=== PATIENT | male | born 1975 | race Caucasian/White ===

== ENCOUNTER 2020-11-25 10:01 | Emergency (ER) | payer OTHER, BC, SELFPAY ==
--- NOTE | 2020-11-25 10:10 | ED.WOUNDLAC ---
HPI - Wound/Laceration General Chief Complaint: Wound/Laceration Stated Complaint: Cut above the left Eye Time Seen by Provider: 11/25/20 10:10 Source: patient and RN notes reviewed History of Present Illness HPI narrative: Patient is a 45-year-old male who presents the urgent care with complaints of a laceration to the right upper eyelid. Patient states that he was laying in bed and his dog slapped him and cut the right upper eyelid with his nail. Patient states he is up-to-date on his tetanus. States that happened approximately 1 hour prior to arrival. Patient has placed a towel on the area to stop the bleeding but denies of any [id number] medication or cleaning the wound. Denies of any vision changes. Denies of any pain to the eye. No other acute complaints. No acute distress noted. Patient read the plan of care. Some parts of this dictation were generated by voice recognition software and may contain typographical and/or grammatical inaccuracies. Related Data Allergies Allergy/AdvReac Type Severity Reaction Status Date / Time No Known Allergies Allergy Verified 11/25/20 10:21 Review of Systems Review of Systems: CONSTITUTIONAL: Denies fever, chills, or sweats. EYES: Denies visual changes, redness, or discharge. ENT: Denies rhinorrhea, congestion, sore throat, or otalgia. CARDIOVASCULAR: Denies chest pain, palpitations, or edema. RESPIRATORY: Denies cough or dyspnea. GASTROINTESTINAL: Denies abdominal pain, nausea, vomiting, or diarrhea. GENITOURINARY: Denies dysuria or hematuria. SKIN: Reports of a laceration to the right upper eyelid MUSCULOSKELETAL: Denies back pain, joint pain, or myalgia. NEUROLOGIC: Denies headache, numbness, or weakness. All other systems reviewed are negative, except as documented in HPI. PMFSH Comments At the time of my signature, I reviewed and agree with the nursing past medical, surgical, social, and family history. There is no relevant family history pertinent to the patient complaint. Exam Narrative: GENERAL: This is a well-nourished, well-developed patient, in no apparent distress. HEAD: normocephalic, atraumatic. EYES: PERRL. Sclera clear/white. Vision is grossly intact. EARS: External ears normal NOSE: External nose normal with no obvious nasal discharge, nares without redness, no rhinorrhea. THROAT: Mucous membranes moist NECK: Neck supple CARDIOVASCULAR: Regular rate and rhythm without murmurs, gallops, or rubs. RESPIRATORY: Clear to auscultation. Breath sounds equal bilaterally. No wheezes, rales, or rhonchi. SKIN: 2 cm laceration to the right upper eyelid NEURO: awake, alert, and oriented to person, place and time. There were no obvious focal neurologic abnormalities. EXTREMITIES: No clubbing, cyanosis, or edema. Course Vital Signs Vital signs: Vital Signs Temperature 98.4 F 11/25/20 10:14 Pulse Rate 82 11/25/20 10:14 Respiratory Rate 20 11/25/20 10:14 Blood Pressure 151/86 H 11/25/20 10:14 Pulse Oximetry 96 11/25/20 10:14 Temperature 98.4 F 11/25/20 10:14 Pulse Rate 82 11/25/20 10:14 Respiratory Rate 20 11/25/20 10:14 Blood Pressure 151/86 H 11/25/20 10:14 Pulse Oximetry 96 11/25/20 10:14 Reviewed-patient is informed that they may have pre-hypertension or hypertension based on a blood pressure reading in the department. I recommend the patient call the primary care provider listed on their discharge instructions or a physician of their choice this week to arrange follow-up for further evaluation of possible pre-hypertension or hypertension. Procedures Laceration Laceration 1: Site: face (Left upper eyelid) Side (If applicable): left Size (cm): 2 Description: linear Depth: simple, single layer Local Anesthetic: none Pre-repair: irrigated (Technique care normal saline) ====== Skin Level ====== Skin layer closed with: dermabond ====== Subcutaneous Layer ======
[2020-11-25 10:14] VITALS: BP 151/86; PULSE 82; RESP 20; TEMP 36.9; O2SAT 96
== END 2020-11-25 10:40 | disposition home or self-care (01) ==
PROVIDERS: Emergency Provider Nurse Practitioner Family; PCP Hospitalist
DX: S01.111A Laceration without foreign body of right eyelid and periocular area, initial encounter (principal); W54.1XXA Struck by dog, initial encounter
CPT/HCPCS: 12011; 99203; G0463